=== PATIENT | male | born 1995 | race Hispanic/Latino ===

== ENCOUNTER 2020-09-15 20:22 | Emergency (ER) | payer BC ==
[2020-09-15] MEDS ORDERED: Ketorolac Tromethamine 30 MG/ML VIAL ONE (21:25)
== END 2020-09-15 21:28 | disposition home or self-care (01) ==
LOC: ERS 20:22
DX: K08.89 Other specified disorders of teeth and supporting structures (principal)
CPT/HCPCS: 96372; 99282; J1885

== ENCOUNTER 2021-10-27 14:10 | Emergency (ER) | payer OTHER, SELFPAY | END 2021-10-27 16:32 | disposition home or self-care (01) | LOC: ERS 14:10 | DX: M79.632 Pain in left forearm (principal); V89.2XXA Person injured in unspecified motor-vehicle accident, traffic, initial encounter | CPT/HCPCS: 99284 ==